=== PATIENT | male | born 1985 | race Caucasian/White ===

== ENCOUNTER 2016-10-03 | Emergency (ER) | payer SELFPAY ==
[~2016-10-03] VITALS: Ht 182.9 cm; Wt 81.6 kg
--- NOTE | 2016-10-03 | NUR ---
ARELY RESTREPO. DR. NUÑEZ EVALUATED PATIENT. PATIENT WAS TRIAGED AND TAKEN TO ER LOBBY
[2016-10-03 00:09] VITALS: BP 138/92
--- NOTE | 2016-10-03 01:05 | NUR ---
Unable to find pt to give d/c intructions and Rx. Pt left without instructions.
== END 2016-10-03 01:05 | disposition home or self-care (01) ==
LOC: MED
DX: K59.00 Constipation, unspecified (principal)
CPT/HCPCS: 99283